=== PATIENT | female | born 1945 | race Caucasian/White ===

== ENCOUNTER 2017-11-06 01:03 | Inpatient (IN) | payer MEDICARE, OTHER ==
[~2017-11-06] VITALS: Ht 165.1 cm; Wt 114.7 kg
[2017-11-06] VITALS (28 sets, daily range): BP systolic 138–189; BP diastolic 47–69
[2017-11-06] MEDS ORDERED: MORPHINE SULFATE 4 MG/1ML SYG ONE (01:28)
[2017-11-06] MEDS ORDERED: ONDANSETRON HCL 4 MG/2 ML VIAL ONE ×2 (01:28→03:39)
[2017-11-06 01:43] LABS: BASOPHILS % (AUTO) 0.8 % (0.0-5.0); EOSINOPHILS % (AUTO) 1.3 % (0.0-8.0); HEMATOCRIT 35.8 % (36-48); LYMPHOCYTES % (AUTO) 15.2 % (21.0-51.0); MEAN CORPUSCULAR HGB CONC 33.9 g/dL (32.0-36.0); MEAN CORPUSCULAR VOLUME 88.5 fL (79-99); MONOCYTES % (AUTO) 7.1 % (3.0-13.0); NEUTROPHILS % (AUTO) 75.6 % (40.0-77.0); PLATELET COUNT (AUTO) 205 K/uL (130-400); RED BLOOD CELL COUNT(AUTO) 4.04 MIL/uL (4.00-5.50); RED CELL DISTRIBUTION WIDTH 15.2 % (11.0-15.5); WHITE BLOOD COUNT (AUTO) 9.8 K/uL (4.8-10.8)
[2017-11-06 01:45] LABS: CREATININE 1.5 mg/dL (0.5-1.5); POTASSIUM 3.7 mmol/L (3.5-5.1)
[2017-11-06 01:49] LABS: INR 0.95 (0.85-1.15); PARTIAL THROMBOPLASTIN TIME 26.1 SEC (26.3-35.5)
[2017-11-06 01:50] LABS: BILIRUBIN,TOTAL 0.7 mg/dL (0.2-1.0); TOTAL PROTEIN, SERUM 7.3 g/dL (6.0-8.3)
[2017-11-06] MEDS ORDERED: FAMOTIDINE 20MG TAB 20 MG TAB ONE (03:38)
[2017-11-06] MEDS ORDERED: METHYLPREDNISOLONE SOD SUCC 125MG/2ML VIAL ONE ×2 (03:39→11:18)
[2017-11-06] MEDS ORDERED: DiphenhydrAMINE HCL 50 MG/ML VIAL ONE (03:39)
[2017-11-06] MEDS ORDERED: SODIUM CHLORIDE 0.9% 500ML 500 ML IV ONE ×2 (03:40→14:10)
[2017-11-06] MEDS ORDERED: IOPAMIDOL-370 75 ML VIAL IV ONE (04:26)
[2017-11-06] MEDS ORDERED: ISOVUE-370 50ML VIAL IV ONE (04:26)
[2017-11-06] MEDS ORDERED: HYDRALAZINE HCL 20 MG/ML VIAL ONE (04:35)
[2017-11-06] MEDS ORDERED: ONDANSETRON HCL MDV 20ML 2 MG/ML VIAL IVP PRN (04:45)
[2017-11-06] MEDS ORDERED: ENOXAPARIN SODIUM 40 MG/0.4 ML SYRINGE SQ ONE (04:55)
[2017-11-06] MEDS ORDERED: POTASSIUM CHLORIDE 10% ELIXIR 20 MEQ/15 ML UDCUP PO PRN (06:30)
[2017-11-06] MEDS ORDERED: LIDOCAINE HCL-MPF 1% 2ML VIAL IJ PRN (06:30)
[2017-11-06] MEDS ORDERED: GLUCAGON 1MG KIT 1 MG ML IM PRN (06:30)
[2017-11-06] MEDS ORDERED: DEXTROSE 50%-WATER 50 ML DISP.SYRIN IV PRN (06:30)
[2017-11-06] MEDS ORDERED: POTASSIUM CHLORIDE 20MEQ/100ML 100 ML IV PRN (06:30)
[2017-11-06] MEDS: INSULIN R PO SS1 SQ SCH ×4 (07:30→21:00)
[2017-11-06] MEDS ORDERED: CHOL200016 PO (07:57)
[2017-11-06] MEDS ORDERED: DULO60CA63 PO (07:57)
[2017-11-06] MEDS ORDERED: FURO20TA4 PO (07:57)
[2017-11-06] MEDS ORDERED: ESCI20TA36 PO (07:57)
[2017-11-06] MEDS ORDERED: SULF500T8 PO (07:57)
[2017-11-06] MEDS ORDERED: TOPI50TA24 PO (07:57)
[2017-11-06] MEDS ORDERED: ISOS60TA4 PO (07:57)
[2017-11-06] MEDS ORDERED: LEVO100T12 PO (07:57)
[2017-11-06] MEDS ORDERED: TRAZ-187 PO (07:57)
[2017-11-06] MEDS ORDERED: PREG200C PO (07:57)
[2017-11-06] MEDS ORDERED: ZINC50TA64 PO (07:57)
[2017-11-06] MEDS ORDERED: CLOP75TA32 PO (07:57)
[2017-11-06] MEDS ORDERED: METO-408 PO (07:57)
[2017-11-06] MEDS: ASPIRIN 325 MG TABLET PO SCH (08:56)
[2017-11-06] MEDS ORDERED: ENOXAPARIN SODIUM 120 MG/0.8ML SQ SCH (09:00)
[2017-11-06] MEDS: MORPHINE SULFATE 4 MG/1ML SYG IVP PRN ×5 (09:13→22:28)
[2017-11-06] MEDS ORDERED: ISOVUE-300 100 ML VIAL IV ONE (10:51)
[2017-11-06] MEDS ORDERED: LIDOCAINE HCL 2% 20ML ONE ×2 (10:52→11:59)
[2017-11-06] MEDS ORDERED: HEPARIN SODIUM 1000UNIT/ML 10ML VIAL ONE (10:52)
[2017-11-06] MEDS ORDERED: MONTELUKAST SODIUM 10 MG TAB ONE (11:08)
[2017-11-06] MEDS ORDERED: MONTELUKAST SODIUM 10 MG TAB PO SCH (11:15)
[2017-11-06] MEDS ORDERED: METHYLPREDNISOLONE SOD SUCC 125MG/2ML VIAL IVP SCH (11:15)
[2017-11-06] MEDS ORDERED: NITROGLYCERIN 5 MG/ML 10 ML VIAL IV ONE (11:15)
[2017-11-06] MEDS ORDERED: ALTEPLASE 2 MG/2 ML IVCATH ONE (11:55)
[2017-11-06] MEDS ORDERED: MIDAZOLAM HCL 1 MG/ML 2ML VIAL ONE (11:58)
[2017-11-06] MEDS ORDERED: FENTANYL CITRATE PF 50 MCG/1 ML 2ML VIAL ONE (11:59)
[2017-11-06] MEDS ORDERED: SODIUM CHLORIDE 0.9% 1000ML 1,000 ML IV SCH (12:21)
[2017-11-06] MEDS ORDERED: LABETALOL HCL 5 MG/ML 20ML VIAL IV ONE (12:25)
[2017-11-06] MEDS ORDERED: METOPROLOL TARTRATE 1 MG/ML 5ML VIAL IV PRN (12:30)
[2017-11-06] MEDS ORDERED: PHARMACY COMMUNICATION MISC SCH (12:30)
[2017-11-06 14:25] LABS: BASOPHILS % (AUTO) 0.4 % (0.0-5.0); EOSINOPHILS % (AUTO) 0.3 % (0.0-8.0); HEMATOCRIT 36.4 % (36-48); LYMPHOCYTES % (AUTO) 3.2 % (21.0-51.0); MEAN CORPUSCULAR HEMOGLOBIN 29.3 pg (27.0-33.0); MEAN CORPUSCULAR HGB CONC 33.3 g/dL (32.0-36.0); MEAN CORPUSCULAR VOLUME 87.9 fL (79-99); MONOCYTES % (AUTO) 0.8 % (3.0-13.0); NEUTROPHILS % (AUTO) 95.3 % (40.0-77.0); PLATELET COUNT (AUTO) 197 K/uL (130-400); RED BLOOD CELL COUNT(AUTO) 4.14 MIL/uL (4.00-5.50); RED CELL DISTRIBUTION WIDTH 15.2 % (11.0-15.5); WHITE BLOOD COUNT (AUTO) 9.4 K/uL (4.8-10.8)
[2017-11-06] MEDS: HYDRALAZINE HCL 20 MG/ML VIAL IV PRN (14:57)
[2017-11-06] MEDS ORDERED: MORPHINE SULFATE 4 MG/1ML SYG IV PRN (16:00)
[2017-11-06] MEDS ORDERED: HEPARIN 25000 UNITS/250 ML D5W 250 ML IV PRN (18:30)
[2017-11-06] MEDS ORDERED: HEPARIN SODIUM 5000UNIT/ML 1ML VIAL IV SCH (18:30)
[2017-11-06] MEDS ORDERED: ALTEPLASE 4 MG in SODIUM CHLORIDE 0.9% 100 ML IVCATH SCH (19:45)
[2017-11-06] MEDS ORDERED: SODIUM CHLORIDE 0.9% 1000ML 1,000 ML IV ONE (22:37)
[2017-11-07] VITALS (19 sets, daily range): BP systolic 121–165; BP diastolic 42–65
[2017-11-07] MEDS: MORPHINE SULFATE 4 MG/1ML SYG IVP PRN (02:49)
[2017-11-07 04:44] LABS: CREATININE 1.7 mg/dL (0.5-1.5)
[2017-11-07] MEDS: INSULIN R PO SS1 SQ SCH ×4 (05:43→22:03)
[2017-11-07] MEDS ORDERED: LIDOCAINE HCL 2% 20ML ONE (07:10)
[2017-11-07] MEDS ORDERED: NITROGLYCERIN 5 MG/ML 10 ML VIAL IV ONE (07:10)
[2017-11-07] MEDS ORDERED: ISOVUE-300 100 ML VIAL IV ONE (07:37)
[2017-11-07] MEDS ORDERED: METHYLPREDNISOLONE SOD SUCC 125MG/2ML VIAL ONE (07:37)
[2017-11-07] MEDS ORDERED: MIDAZOLAM HCL 1 MG/ML 2ML VIAL ONE (07:55)
[2017-11-07] MEDS ORDERED: FENTANYL CITRATE PF 50 MCG/1 ML 2ML VIAL ONE (07:55)
[2017-11-07] MEDS ORDERED: LABETALOL HCL 5 MG/ML 20ML VIAL IV ONE (08:50)
[2017-11-07] MEDS ORDERED: SODIUM CHLORIDE 0.9% 1000ML 1,000 ML IV SCH (09:37)
[2017-11-07] MEDS ORDERED: HYDRALAZINE HCL 20 MG/ML VIAL IV PRN (09:45)
[2017-11-07] MEDS ORDERED: METOPROLOL TARTRATE 1 MG/ML 5ML VIAL IV PRN (09:45)
[2017-11-07] MEDS ORDERED: HYDRALAZINE HCL 20 MG/ML VIAL ONE (09:46)
[2017-11-07] MEDS: ASPIRIN 325 MG TABLET PO SCH (11:58)
[2017-11-07] MEDS: HEPARIN 25000 UNITS/250 ML D5W 250 ML IV SCH (14:20)
[2017-11-08 03:25] VITALS: BP 111/76
[2017-11-08 04:16] LABS: BASOPHILS % (AUTO) 0.1 % (0.0-5.0); HEMATOCRIT 32.6 % (36-48); MEAN CORPUSCULAR HEMOGLOBIN 29.3 pg (27.0-33.0); MEAN CORPUSCULAR HGB CONC 33.1 g/dL (32.0-36.0); MEAN CORPUSCULAR VOLUME 88.5 fL (79-99); MONOCYTES % (AUTO) 8.6 % (3.0-13.0); NEUTROPHILS % (AUTO) 85.3 % (40.0-77.0); PLATELET COUNT (AUTO) 244 K/uL (130-400); RED BLOOD CELL COUNT(AUTO) 3.68 MIL/uL (4.00-5.50); RED CELL DISTRIBUTION WIDTH 15.4 % (11.0-15.5); WHITE BLOOD COUNT (AUTO) 15.8 K/uL (4.8-10.8)
[2017-11-08 04:26] LABS: CREATININE 2.5 mg/dL (0.5-1.5); POTASSIUM 3.9 mmol/L (3.5-5.1)
[2017-11-08] MEDS: HEPARIN 25000 UNITS/250 ML D5W 250 ML IV SCH (04:56)
[2017-11-08] MEDS: INSULIN R PO SS1 SQ SCH ×4 (07:01→20:38)
[2017-11-08] MEDS: MORPHINE SULFATE 4 MG/1ML SYG IVP PRN (07:11)
[2017-11-08 07:58] VITALS: BP 127/56
[2017-11-08] MEDS: METOPROLOL TARTRATE 25 MG TAB PO SCH ×2 (08:27→20:24)
[2017-11-08] MEDS: ASPIRIN 325 MG TABLET PO SCH (08:27)
[2017-11-08] MEDS: APIXABAN 5 MG TABLET PO SCH ×2 (08:27→20:24)
[2017-11-08 11:21] VITALS: BP 121/56
[2017-11-08 16:00] VITALS: BP 130/82
[2017-11-08] MEDS: SODIUM CHLORIDE 0.9% 1000ML 1,000 ML IV SCH (16:00)
[2017-11-08 19:36] VITALS: BP 107/51
[2017-11-08 23:22] VITALS: BP 113/96
[2017-11-09] MEDS: SODIUM CHLORIDE 0.9% 1000ML 1,000 ML IV SCH ×3 (02:27→19:45)
[2017-11-09 02:35] LABS: APPEARANCE,URINE Turbid (CLEAR); BILIRUBIN,URINE Negative (NEGATIVE); COLOR,URINE Dark Yellow (YELLOW); GLUCOSE, URINE (UA) Negative (NEGATIVE); KETONES,URINE Negative (NEGATIVE); LEUKOCYTE ESTERASE ,URINE Large (NEGATIVE); NITRATE,URINE Negative (NEGATIVE); OCCULT BLOOD,URINE Large (NEGATIVE); PROTEIN,URINE POS 1+ (NEGATIVE)
[2017-11-09 02:40] LABS: BACTERIA,URINE Moderate /HPF (None Seen); MUCUS,URINE Few LPF (None Seen); RENAL EPITHELIAL CELLS,URINE Moderate /HPF (None Seen); SQUAMOUS EPITHELIAL CELL,UR Few /HPF (0-2); WBC,URINE 26-50 /HPF (0-1)
[2017-11-09 02:52] LABS: CREATININE,URINE RANDOM 115 mg/dL (30-135); SODIUM,URINE RANDOM 43 mmol/l (40-220)
[2017-11-09 02:59] LABS: PROTEIN,URINE RANDOM 106.1 mg/dL (0-11.9)
[2017-11-09 03:33] VITALS: BP 127/44
[2017-11-09 04:21] LABS: HEMATOCRIT 27.8 % (36-48); MEAN CORPUSCULAR HEMOGLOBIN 30.6 pg (27.0-33.0); MEAN CORPUSCULAR HGB CONC 34.6 g/dL (32.0-36.0); MEAN CORPUSCULAR VOLUME 88.6 fL (79-99); PLATELET COUNT (AUTO) 215 K/uL (130-400); RED BLOOD CELL COUNT(AUTO) 3.14 MIL/uL (4.00-5.50); RED CELL DISTRIBUTION WIDTH 15.7 % (11.0-15.5)
[2017-11-09 04:37] LABS: CREATININE 3.2 mg/dL (0.5-1.5); POTASSIUM 3.9 mmol/L (3.5-5.1)
[2017-11-09 04:38] LABS: BAND NEUTROPHILS % (MANUAL) 14 % (0-2); BASOPHILS % (MANUAL) 2 % (0-2); EOSINOPHILS % (MANUAL) 3 % (1-6); LYMPHOCYTES % (MANUAL) 12 % (22-44); MAN.DIFF COMMENT-IMPRESSION MANUAL DIFFERENTIAL; MONOCYTES % (MANUAL) 8 % (2-9); PLATELET MORPHOLOGY COMMENT ADEQUATE; SEGMENTED NEUTROPHILS % 61 % (40-70)
[2017-11-09 04:52] LABS: % IRON SATURATION 16.8 % (22-44)
[2017-11-09] MEDS: INSULIN R PO SS1 SQ SCH ×4 (06:33→20:46)
[2017-11-09 07:58] VITALS: BP 147/54
[2017-11-09] MEDS: APIXABAN 5 MG TABLET PO SCH ×2 (09:59→20:31)
[2017-11-09] MEDS: METOPROLOL TARTRATE 25 MG TAB PO SCH ×2 (09:59→20:32)
[2017-11-09] MEDS: CEFTRIAXONE SODIUM 1 GM IV SCH (09:59)
[2017-11-09] MEDS: ASPIRIN 325 MG TABLET PO SCH (09:59)
[2017-11-09] MEDS ORDERED: COMPOUND IV MISC 1 EACH IVSOLN MISC PRN (10:45)
[2017-11-09 11:34] VITALS: BP 139/47
[2017-11-09 16:00] VITALS: BP 121/52
[2017-11-09] MEDS: IRON SUCROSE COMPLEX 100 MG in SODIUM CHLORIDE 0.9% 50 ML IV SCH (17:13)
[2017-11-09 19:24] VITALS: BP 163/62
[2017-11-09 23:46] VITALS: BP 144/46
[2017-11-10 03:35] VITALS: BP 153/60
[2017-11-10 04:20] LABS: HEMATOCRIT 26.7 % (36-48); MEAN CORPUSCULAR HEMOGLOBIN 29.9 pg (27.0-33.0); MEAN CORPUSCULAR HGB CONC 34.1 g/dL (32.0-36.0); MEAN CORPUSCULAR VOLUME 87.6 fL (79-99); PLATELET COUNT (AUTO) 209 K/uL (130-400); RED BLOOD CELL COUNT(AUTO) 3.05 MIL/uL (4.00-5.50); RED CELL DISTRIBUTION WIDTH 15.4 % (11.0-15.5)
[2017-11-10 04:27] LABS: CREATININE 2.6 mg/dL (0.5-1.5); POTASSIUM 3.7 mmol/L (3.5-5.1)
[2017-11-10 05:16] LABS: BASOPHILS % (MANUAL) 1 % (0-2); EOSINOPHILS % (MANUAL) 1 % (1-6); LYMPHOCYTES % (MANUAL) 13 % (22-44); MONOCYTES % (MANUAL) 8 % (2-9); SEGMENTED NEUTROPHILS % 77 % (40-70)
[2017-11-10 05:17] LABS: MAN.DIFF COMMENT-IMPRESSION MANUAL DIFFERENTIAL; PLATELET MORPHOLOGY COMMENT ADEQUATE
[2017-11-10] MEDS: POTASSIUM CHLORIDE 20 MEQ ERTAB PO PRN (05:36)
[2017-11-10] MEDS: INSULIN R PO SS1 SQ SCH ×4 (06:00→21:17)
[2017-11-10 07:56] VITALS: BP 170/58
[2017-11-10] MEDS: APIXABAN 5 MG TABLET PO SCH ×2 (08:28→20:38)
[2017-11-10] MEDS: CEFTRIAXONE SODIUM 1 GM IV SCH (08:28)
[2017-11-10] MEDS: IRON SUCROSE COMPLEX 100 MG in SODIUM CHLORIDE 0.9% 50 ML IV SCH (08:28)
[2017-11-10] MEDS: METOPROLOL TARTRATE 25 MG TAB PO SCH ×2 (08:28→20:38)
[2017-11-10] MEDS: ASPIRIN 325 MG TABLET PO SCH ×2 (08:28→09:00)
[2017-11-10 12:07] VITALS: BP 148/56
[2017-11-10 16:00] VITALS: BP 176/62
[2017-11-10 19:38] VITALS: BP 182/66
[2017-11-10 23:47] VITALS: BP 171/67
[2017-11-11] MEDS: HYDRALAZINE HCL 20 MG/ML VIAL IV PRN
[2017-11-11] MEDS: ACETAMINOPHEN 325 MG TAB PO PRN ×2 (00:11→11:22)
[2017-11-11 03:39] VITALS: BP 144/51
[2017-11-11 04:27] LABS: CREATININE 2.1 mg/dL (0.5-1.5); POTASSIUM 3.8 mmol/L (3.5-5.1)
[2017-11-11] MEDS: INSULIN R PO SS1 SQ SCH ×4 (06:24→21:43)
[2017-11-11] MEDS: POTASSIUM CHLORIDE 20 MEQ ERTAB PO PRN (06:53)
[2017-11-11 09:08] VITALS: BP 127/53
[2017-11-11] MEDS: IRON SUCROSE COMPLEX 100 MG in SODIUM CHLORIDE 0.9% 50 ML IV SCH (09:20)
[2017-11-11] MEDS: CEFTRIAXONE SODIUM 1 GM IV SCH (09:20)
[2017-11-11] MEDS: APIXABAN 5 MG TABLET PO SCH ×2 (09:21→20:04)
[2017-11-11] MEDS: ASPIRIN 325 MG TABLET PO SCH (09:21)
[2017-11-11] MEDS: METOPROLOL TARTRATE 25 MG TAB PO SCH ×2 (09:21→20:04)
[2017-11-11] MEDS: AMLODIPINE BESYLATE 5 MG TAB PO SCH (09:23)
[2017-11-11] MEDS: ISOSORBIDE MONO 60 MG TAB.SR PO SCH (09:24)
[2017-11-11 12:27] VITALS: BP 122/50
[2017-11-11 16:59] VITALS: BP 166/54
[2017-11-11 23:20] VITALS: BP 146/52
[2017-11-12 03:28] VITALS: BP 138/58
[2017-11-12] MEDS: INSULIN R PO SS1 SQ SCH ×2 (06:03→11:57)
[2017-11-12 07:00] VITALS: BP 140/50
[2017-11-12] MEDS: CEFTRIAXONE SODIUM 1 GM IV SCH (10:19)
[2017-11-12] MEDS: ASPIRIN 325 MG TABLET PO SCH (10:19)
[2017-11-12] MEDS: AMLODIPINE BESYLATE 5 MG TAB PO SCH (10:20)
[2017-11-12] MEDS: METOPROLOL TARTRATE 25 MG TAB PO SCH (10:20)
[2017-11-12] MEDS: APIXABAN 5 MG TABLET PO SCH (10:20)
[2017-11-12] MEDS: ISOSORBIDE MONO 60 MG TAB.SR PO SCH (10:20)
[2017-11-12] MEDS: IRON SUCROSE COMPLEX 100 MG in SODIUM CHLORIDE 0.9% 50 ML IV SCH (10:35)
[2017-11-12 11:27] VITALS: BP 145/48
[2017-11-12] MEDS: ACETAMINOPHEN 325 MG TAB PO PRN (11:56)
[2017-11-12] MEDS ORDERED: TRAMADOL HCL 50 MG TABLET PO PRN (14:15)
[2017-11-12 16:26] VITALS: BP 143/92
== END 2017-11-12 17:02 | DRG 270 ==
LOC: EDH 01:03 → EDHIP 04:00 → 2DH 04:49 → 2BH 11:44 → 2CH 13:22 → 2DH 11-07 18:03
PROVIDERS: ADMIT Internal Medicine Nephrology; ATTEND Internal Medicine Nephrology
PROC: B4101ZZ Fluoroscopy of Abdominal Aorta using Low Osmolar Contrast (ICD-10-PCS; principal; 2017-11-06)
PROC: 04HD33Z Insertion of Infusion Device into Left Common Iliac Artery, Percutaneous Approach (ICD-10-PCS; 2017-11-06)
PROC: 04CJ3ZZ Extirpation of Matter from Left External Iliac Artery, Percutaneous Approach (ICD-10-PCS; 2017-11-07)
PROC: 04CD3ZZ Extirpation of Matter from Left Common Iliac Artery, Percutaneous Approach (ICD-10-PCS; 2017-11-07)
PROC: 04CL3ZZ Extirpation of Matter from Left Femoral Artery, Percutaneous Approach (ICD-10-PCS; 2017-11-07)
PROC: 04CN3ZZ Extirpation of Matter from Left Popliteal Artery, Percutaneous Approach (ICD-10-PCS; 2017-11-07)
PROC: 04CU3ZZ Extirpation of Matter from Left Peroneal Artery, Percutaneous Approach (ICD-10-PCS; 2017-11-07)
PROC: 047D3DZ Dilation of Left Common Iliac Artery with Intraluminal Device, Percutaneous Approach (ICD-10-PCS; 2017-11-07)
PROC: B41G1ZZ Fluoroscopy of Left Lower Extremity Arteries using Low Osmolar Contrast (ICD-10-PCS; 2017-11-07)
DX: I74.5 Embolism and thrombosis of iliac artery (principal); N17.0 Acute kidney failure with tubular necrosis; E66.01 Morbid (severe) obesity due to excess calories; Z68.41 Body mass index [BMI] 40.0-44.9, adult; D68.59 Other primary thrombophilia; E11.22 Type 2 diabetes mellitus with diabetic chronic kidney disease; E11.51 Type 2 diabetes mellitus with diabetic peripheral angiopathy without gangrene; J98.11 Atelectasis; I99.8 Other disorder of circulatory system; I48.0 Paroxysmal atrial fibrillation; N18.9 Chronic kidney disease, unspecified; E78.5 Hyperlipidemia, unspecified; I25.10 Atherosclerotic heart disease of native coronary artery without angina pectoris; D72.829 Elevated white blood cell count, unspecified; E78.00 Pure hypercholesterolemia, unspecified; I13.10 Hypertensive heart and chronic kidney disease without heart failure, with stage 1 through stage 4 chronic kidney disease, or unspecified chronic kidney disease; I48.2 Chronic atrial fibrillation; N14.1 Nephropathy induced by other drugs, medicaments and biological substances; T50.8X5A Adverse effect of diagnostic agents, initial encounter; Z60.2 Problems related to living alone; Z79.01 Long term (current) use of anticoagulants; Z79.02 Long term (current) use of antithrombotics/antiplatelets; Z79.82 Long term (current) use of aspirin; Z79.84 Long term (current) use of oral hypoglycemic drugs; Z79.899 Other long term (current) drug therapy; Z85.038 Personal history of other malignant neoplasm of large intestine; Z95.1 Presence of aortocoronary bypass graft; Z95.5 Presence of coronary angioplasty implant and graft; Z88.8 Allergy status to other drugs, medicaments and biological substances
CPT/HCPCS: 36247; 36415; 37184; 37185; 37211; 37214; 75625; 75630; 75635; 75710; 75774; 80048; 80053; 81001; 82270; 82570; 82948; 83540; 83550; 83880; 84156; 84300; 85025; 85610; 85730; 86850; 86900; 86901; 87088; 87186; 93005; 93306; 93926; 93971; 97039; 99152; 99153; A4218; C1751; C1757; C1760; C1769; C1893; C1894; J0360; J0696; J1200; J1644; J1650; J1756; J1815; J2250; J2270; J2405; J2930; J2997; J3010; J3480; J3490; J7030; J7040; Q9967

== ENCOUNTER 2020-02-25 15:04 | Emergency (ER) | payer MEDICARE, OTHER ==
[~2020-02-25 15:04] MED LIST: CHOL200059 PO; CLOP75TA32 PO; DULO60CA64 PO; ESCI20TA36 PO; FURO20TA4 PO; ISOS60TA4 PO; LEVO100T12 PO; METO-408 PO; PREG200C PO; SULF500T8 PO; TOPI50TA24 PO; ZINC50TA64 PO
[2020-02-25 15:40] LABS: BASOPHILS % (AUTO) 0.7 % (0.0-5.0); EOSINOPHILS % (AUTO) 1.9 % (0.0-8.0); HEMATOCRIT 38.8 % (36-48); LYMPHOCYTES % (AUTO) 29.6 % (21.0-51.0); MEAN CORPUSCULAR HEMOGLOBIN 26.8 pg (27.0-33.0); MEAN CORPUSCULAR HGB CONC 31.4 g/dL (32.0-36.0); MEAN CORPUSCULAR VOLUME 85.3 fL (79-99); MONOCYTES % (AUTO) 7.3 % (3.0-13.0); NEUTROPHILS % (AUTO) 60.3 % (40.0-77.0); PLATELET COUNT (AUTO) 227 K/uL (130-400); RED BLOOD CELL COUNT(AUTO) 4.55 MIL/uL (4.00-5.50); RED CELL DISTRIBUTION WIDTH 14.8 % (11.0-15.5); WHITE BLOOD COUNT (AUTO) 5.8 K/uL (4.8-10.8)
[2020-02-25 15:51] LABS: CREATININE 1.7 mg/dL (0.5-1.5); POTASSIUM 3.7 mmol/L (3.5-5.1)
[2020-02-25 15:53] LABS: INR 0.91 (0.85-1.15); PARTIAL THROMBOPLASTIN TIME 27.7 SEC (26.3-35.5); PROTHROMBIN TIME 9.9 SEC (9.6-11.6)
[2020-02-25 15:58] LABS: ALBUMIN 3.1 g/dL (3.5-5.0); BILIRUBIN,TOTAL 0.2 mg/dL (0.2-1.0); TOTAL PROTEIN, SERUM 7.1 g/dL (6.0-8.3)
== END 2020-02-25 20:18 | disposition home or self-care (01) ==
LOC: EDH 15:04
DX: L03.116 Cellulitis of left lower limb (principal); R60.9 Edema, unspecified; I48.91 Unspecified atrial fibrillation; I12.0 Hypertensive chronic kidney disease with stage 5 chronic kidney disease or end stage renal disease; E11.22 Type 2 diabetes mellitus with diabetic chronic kidney disease; N18.6 End stage renal disease; I25.10 Atherosclerotic heart disease of native coronary artery without angina pectoris; E78.5 Hyperlipidemia, unspecified; Z90.49 Acquired absence of other specified parts of digestive tract; Z90.710 Acquired absence of both cervix and uterus; Z91.041 Radiographic dye allergy status; Z88.8 Allergy status to other drugs, medicaments and biological substances
CPT/HCPCS: 36415; 80053; 82550; 83880; 84484; 85025; 85610; 85730; 93005; 93970